=== PATIENT | male | born 1980 | race African-American/Black ===

== ENCOUNTER 2020-05-27 07:05 | Day surgery (SDC) | payer OTHER ==
[~2020-05-27] VITALS: Ht 182.9 cm; Wt 118.8 kg
[2020-05-27 08:03] VITALS: BP 136/85
[2020-05-27 13:04] VITALS: BP 126/67
== END 2020-05-27 13:00 | disposition home or self-care (01) ==
LOC: GI 07:05 → OR 12:00 → GI 13:00
PROVIDERS: ATTEND Internal Medicine Gastroenterology
DX: K62.5 Hemorrhage of anus and rectum (principal); K64.2 Third degree hemorrhoids; E11.9 Type 2 diabetes mellitus without complications; Z79.84 Long term (current) use of oral hypoglycemic drugs; Z83.3 Family history of diabetes mellitus
CPT/HCPCS: 45378; J1200; J1610; J2250; J2310; J3010; J3490